=== PATIENT | female | born 1990 | race Hispanic/Latino ===

== ENCOUNTER 2021-10-30 17:21 | Day surgery (SDC) | payer SELFPAY ==
[2021-10-30 17:57] VITALS: BMI 24.7
== END 2021-10-30 19:33 | disposition home or self-care (01) ==
LOC: CSHLD/OP 17:21
PROVIDERS: ATTEND Family Medicine
DX: O99.891 Other specified diseases and conditions complicating pregnancy (principal); R10.10 Upper abdominal pain, unspecified; O34.219 Maternal care for unspecified type scar from previous cesarean delivery; Z3A.25 25 weeks gestation of pregnancy
CPT/HCPCS: 99282

== ENCOUNTER → 2021-12-28 | Day surgery (SDC) | payer SELFPAY ==
[~2021-12-28] MED LIST: Acetaminophen 500 MG TAB ONE; Iron Sucrose Complex 500 MG in Sodium Chloride 0.9% 250 ML 250 ML IVPB SCH
== END ==
LOC: CSHSDC/OP 12:15
PROVIDERS: ATTEND Student in an Organized Health Care Education/Training Program
DX: O99.019 Anemia complicating pregnancy, unspecified trimester (principal)
CPT/HCPCS: J1756; J7050

== ENCOUNTER 2022-02-05 10:28 | Inpatient (IN) | payer MEDICAID, OTHER ==
[2022-02-04 10:44] LABS: Hemoglobin 12.3 g/dL (12.0-15.5); Mean Corpuscular Hemoglobin 26.3 pg (27.0-33.0); Mean Corpuscular Volume 79.9 fl (81.6-98.3); Mean Platelet Volume 10.3 fl (7.4-10.4); Platelet Count 199 10x3/uL (150-450); RBC Distribution Width 22.1 % (11.5-14.5); Red Blood Cell (RBC) Count 4.67 10x6/uL (3.90-5.03); White Blood Cell (WBC) Count 9.1 10x3/uL (3.5-10.5)
[2022-02-04 11:13] LABS: SARS-CoV-2 NAA Rapid Test Not Detected (NotDetected)
[2022-02-04 11:33] LABS: Syphilis Antibody Nonreactive (Nonreactive); Syphilis Antibody Index 0.07 S/CO (<1.00 Non-Reactive)
[2022-02-04 12:20] LABS: Hep B Surf Ag Non-Reactive S/CO (NonReactive)
[2022-02-04 13:21] LABS: HBSAg Index 0.27 S/CO (0-0.99)
[2022-02-05 10:48] VITALS: BMI 31.5
[2022-02-05] MEDS ORDERED: Bicitra 30 ML UDCUP PO PRN (11:17)
[2022-02-05] MEDS ORDERED: Famotidine/PF 20 mg/2ml Vial SLOW IVP PRN (11:17)
[2022-02-05] MEDS ORDERED: Ondansetron PF 4 MG/2 ML Vial IVP PRN ×3 (11:17→15:15)
[2022-02-05] MEDS ORDERED: Promethazine HCl 25 MG/ML VIAL IM PRN ×3 (11:17→15:15)
[2022-02-05] MEDS ORDERED: hydrALAZINE 20 MG/ML VIAL SLOW IVP PRN ×2 (11:17→15:15)
[2022-02-05] MEDS ORDERED: Lactated Ringer's 1,000 ML IV SCH (11:30)
[2022-02-05] MEDS ORDERED: CEFAZOLIN 2 GM in Sodium Chloride 0.9% 100 ML IVPB SCH (11:30)
[2022-02-05] MEDS ORDERED: ePHEDrine Sulfate 50 MG/10 ML VIAL ONE (11:51)
[2022-02-05] MEDS ORDERED: PHENYLEPHRINE-NS 100 MCG/ML 10 ML SYRINGE ONE (11:51)
[2022-02-05] MEDS ORDERED: Carboprost 250 MCG/ML AMP ONE (11:55)
[2022-02-05] MEDS ORDERED: Misoprostol 200 MCG TAB ONE (11:55)
[2022-02-05] MEDS ORDERED: Fentanyl 100 MCG/2 ML VIAL ONE (12:56)
[2022-02-05] MEDS ORDERED: Moisturizing Cream (Eucerin) 113 GM JAR TOP PRN (13:24)
[2022-02-05] MEDS ORDERED: Promethazine HCl 25 MG SUPP PR PRN (13:24)
[2022-02-05] MEDS ORDERED: Meperidine HCl/PF 25 MG/ML VIAL SLOW IVP PRN (13:24)
[2022-02-05] MEDS ORDERED: Naloxone HCl 0.4 mg/ml Vial IV PRN (13:24)
[2022-02-05] MEDS ORDERED: Naloxone HCl 0.4 mg/ml Vial IVP PRN ×2 (13:24)
[2022-02-05] MEDS ORDERED: Ondansetron HCl/PF 4 MG/2 ML Vial IVP PRN (13:24)
[2022-02-05] MEDS ORDERED: diphenhydrAMINE 50 MG/ML VIAL IVP PRN (13:24)
[2022-02-05] MEDS ORDERED: Fentanyl 100 MCG/2 ML VIAL SLOW IVP PRN (13:24)
[2022-02-05] MEDS ORDERED: Ketorolac Tromethamine 30 MG/ML VIAL IVP SCH (13:30)
[2022-02-05] MEDS ORDERED: Communication Order-Pharmacy FS SCH (13:30)
[2022-02-05] MEDS ORDERED: NS w/ Oxytocin 30 units 500 ML ONE (14:34)
[2022-02-05] MEDS ORDERED: HYDROcodone/Acetaminophen 5/325 mg Tablet PO PRN ×2 (15:15)
[2022-02-05] MEDS ORDERED: Boostrix 0.5 ML (Tdap) VIAL IM ONE (15:15)
[2022-02-05] MEDS ORDERED: Misoprostol 200 MCG TAB PR PRN (15:15)
[2022-02-05] MEDS ORDERED: Methylergonovine 0.2 MG/ML VIAL IM PRN (15:15)
[2022-02-05] MEDS ORDERED: NS w/ Oxytocin 30 units 500 ML IV SCH (15:15)
[2022-02-05] MEDS ORDERED: Lanolin Ointment 7 GM TUBE TOP PRN (15:15)
[2022-02-05] MEDS ORDERED: Fentanyl 100 MCG/2 ML VIAL SLOW IVP SCH (15:17)
[2022-02-05] MEDS: Ketorolac Tromethamine 30 MG/ML VIAL IVP SCH ×2 (18:11→23:56)
[2022-02-05] MEDS ORDERED: Ibuprofen 800 MG TAB PO SCH (22:00)
[2022-02-06 05:14] LABS: Hemoglobin 9.4 g/dL (12.0-15.5); Mean Corpuscular Hemoglobin 26.1 pg (27.0-33.0); Mean Corpuscular Volume 81.7 fl (81.6-98.3); Mean Platelet Volume 10.8 fl (7.4-10.4); Platelet Count 168 10x3/uL (150-450); RBC Distribution Width 21.6 % (11.5-14.5); White Blood Cell (WBC) Count 8.2 10x3/uL (3.5-10.5)
[2022-02-06] MEDS: Ketorolac Tromethamine 30 MG/ML VIAL IVP SCH (06:09)
[2022-02-06] MEDS: Prenatal Vitamin 1 TAB PO SCH (08:23)
[2022-02-06] MEDS: HYDROcodone/Acetaminophen 5/325 mg Tablet PO PRN ×4 (08:24→20:09)
[2022-02-06] MEDS: Ibuprofen 800 MG TAB PO SCH ×2 (13:45→21:47)
[2022-02-07] MEDS: HYDROcodone/Acetaminophen 5/325 mg Tablet PO PRN ×2 (04:15→10:36)
[2022-02-07 05:12] LABS: Hemoglobin 9.4 g/dL (12.0-15.5)
[2022-02-07] MEDS ORDERED: Simethicone Chewable 80 MG TAB PO PRN (06:21)
[2022-02-07] MEDS: Ibuprofen 800 MG TAB PO SCH ×2 (06:37→14:13)
[2022-02-07] MEDS ORDERED: Polyethylene Glycol 3350 17 GM Packet PO SCH (07:00)
[2022-02-07] MEDS: Prenatal Vitamin 1 TAB PO SCH (08:46)
[2022-02-07 11:58] VITALS: BP 101/58; TEMP 98.7
== END 2022-02-07 16:05 | disposition home or self-care (01) | DRG 788 ==
LOC: CSHLD 10:28 → CSHPP 14:50
PROVIDERS: ADMIT Family Medicine; ATTEND Family Medicine
PROC: 10D00Z1 Extraction of Products of Conception, Low, Open Approach (ICD-10-PCS; principal; 2022-02-05)
DX: O34.211 Maternal care for low transverse scar from previous cesarean delivery (principal); Z3A.39 39 weeks gestation of pregnancy; Z37.0 Single live birth; Z20.822 Contact with and (suspected) exposure to COVID-19; D50.9 Iron deficiency anemia, unspecified; O99.02 Anemia complicating childbirth; Z86.16 Personal history of COVID-19
CPT/HCPCS: 36415; 85014; 85018; 85027; 86780; 86850; 86900; 86901; 87340; J0690; J1885; J3010; J3490; S0028; U0002